=== PATIENT | male | born 1970 | race Caucasian/White ===

== ENCOUNTER 2017-02-23 16:42 | Emergency (ER) | payer MEDICAID | END 2017-02-23 20:22 | disposition home or self-care (01) | LOC: D.ER 16:42 | DX: T15.02XA Foreign body in cornea, left eye, initial encounter (principal); X58.XXXA Exposure to other specified factors, initial encounter; Y93.89 Activity, other specified; Y92.89 Other specified places as the place of occurrence of the external cause; S05.02XA Injury of conjunctiva and corneal abrasion without foreign body, left eye, initial encounter ==

== ENCOUNTER 2017-02-24 13:39 | Emergency (ER) | payer MEDICAID | END 2017-02-24 15:03 | disposition home or self-care (01) | LOC: D.ER 13:39 | DX: S05.02XA Injury of conjunctiva and corneal abrasion without foreign body, left eye, initial encounter (principal); X58.XXXA Exposure to other specified factors, initial encounter; Y93.89 Activity, other specified; Y92.029 Unspecified place in mobile home as the place of occurrence of the external cause ==